=== PATIENT | male | born 1975 | race Caucasian/White ===

== ENCOUNTER → 2024-07-18 06:33 | Outpatient (CLI) | payer OTHER, SELFPAY ==
--- NOTE | 2024-07-18 06:36 | DI.CT.S_ITS ---
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 1 mm thick dynamic expiratory images acquired through the upper, mid, and lower lungs. 1.0 mm thick axial sections acquired from the marine to the posterior costophrenic angles in the prone end-inspiration position. For radiation dose reduction, the following was used: automated exposure control, adjustment of mA and/or kV according to patient size. COMPARISON: None. FINDINGS: Image quality: Diagnostic Lungs and pleura: There is mild diffuse air trapping on expiratory images. No evidence of parenchymal fibrosis on inspiratory images. No change on prone imaging. No pleural effusions. No dense airspace disease. No suspicious pulmonary nodule. Mediastinum, heart, and esophagus: Normal heart size. No pathologic lymph nodes by size criteria. Chest wall and thyroid: Unremarkable Upper abdomen: No gross abnormality on these noncontrast images in the upper abdomen Bones: Unremarkable IMPRESSION: No parenchymal fibrosis is seen on high-resolution chest CT. There is mild diffuse air trapping, which can be seen with chronic small airways disease. Dictated by: Roldan Cassidy M.D. on 07/18/2024 at 9:39 Approved by: Roldan Cassidy M.D. on 07/18/2024 at 9:42
== END ==
PROVIDERS: Referring Provider Internal Medicine Critical Care Medicine; Visit Provider Internal Medicine Critical Care Medicine
DX: J84.9 Interstitial pulmonary disease, unspecified (principal)
CPT/HCPCS: 71250

== ENCOUNTER → 2024-08-07 07:18 | Outpatient (CLI) | payer OTHER, SELFPAY | PROVIDERS: Referring Provider Internal Medicine Critical Care Medicine; Visit Provider Internal Medicine Critical Care Medicine | DX: R06.09 Other forms of dyspnea (principal); Z87.891 Personal history of nicotine dependence; Z86.16 Personal history of COVID-19; J84.9 Interstitial pulmonary disease, unspecified | CPT/HCPCS: 94060; 94726; 94729 ==